=== PATIENT | female | born 1955 | race Caucasian/White ===

== ENCOUNTER 2016-06-01 17:50 | Emergency (ER) | payer OTHER ==
--- NOTE | 2016-06-01 19:59 | ED ORDER SUMMARY ---
..... Patient: ALVARO PARKER OrderSheet [facility] VisitID: [id number] [address] [place] [address] 61y, F Registration Date/Time: 06/01/2016 ORDER SHEET Weight: 56.6 kg (stated) Allergies: Codeine GENERAL ORDERS: Dress Wounds (19:06/01/2016 HBivens A.R.N.P.) (19:45 EInderbitzen R.N.) Suture Set-up: (19:06/01/2016 HBivens A.R.N.P.) (19:26 EInderbitzen R.N.) MEDICATION ORDERS: Tdap IM 0.5 mL (NOW, per protocol) (19:06/01/2016 HBivens A.R.N.P.) (19:33 EInderbitzen R.N.) IV FLUIDS: ORDER SHEET NOTES: [Electronically signed by Meghna Lakhani R.N. (20:16 06/01/2016)] [Electronically signed by Monica SmartR.N.P. (21:20 06/01/2016)] [Electronically locked/signed by Meghna Lakhani R.N. (20:16 06/01/2016)]
--- NOTE | 2016-06-01 19:59 | ED NURSING NOTES ---
Clinical Report - Nurses [facility] [place] [address] 06/01/2016 17:53 [id number] TRI[facility] Triage time 18:35 Jun 01 2016. Acuity: LEVEL 3. Chief Complaint: INJURY TO RIGHT HAND. Alert. RODOLFO COMA SCORE: Samson Coma Scale: 15- eyes open spontaneously (4); best verbal response- oriented x 4 (5); best motor response- obeys commands (6). Rodolfo Coma Scale: 15- eyes open spontaneously (4); best verbal response- oriented x 4 (5); best motor response- obeys commands (6). --18:47 Josse Rob R.N. 18:35 06/01/16. BP: 160/87. HR: 72. RR: 16. O2 saturation: 97% on room air. Temp: 98.8 F (oral). Pain level now: 11/16. --18:47 Josse Rob R.N. Weight: 56.6 kg stated. Height/Length: 69 inches Per Patient. BMI: 18.4. --18:40 Josse Rob R.N. Medications Atenolol Oral. Lisinopril Oral. --18:39 Josse Rob R.N. Allergies Codeine. Definite Moderate(nausea) --18:39 Josse Rob R.N. History Arrived by private vehicle. Historian: patient. Accompanied by friend. Primary physician (Jay Resendiz). ( Laceration to (R) Hand close to the index finger knuckle. Bleed control. Doing dishes and a broken piece of glass cut that hand.). This occurred (about 1 1/2 hours ago). She sustained a laceration. 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 PAST MEDICAL HX: Hypertension. Tetanus status: up-to-date. Immunizations: status is unknown. The patient is post-menopausal. SOCIAL HX: Heavy tobacco smoker (cigarette)- 1 pack per day. History of drug use: marijuana. No alcohol use. No infectious disease exposure. ABUSE ASSESSMENT: No report of abuse. FALL RISK ASSESSMENT: Fall risk assessment completed. No fall risk identified. NUTRITIONAL RISK ASSESSMENT: The nutritional risk assessment revealed no deficiencies. FUNCTIONAL ASSESSMENT: Functional assessment: no impairments noted. LEARNING NEEDS ASSESSMENT: The learning needs assessment revealed no barriers. SKIN INTEGRITY ASSESSMENT: Skin integrity risk assessment completed. No skin integrity risk identified. --18:47 Josse Rob R.N. Interventions ID and allergy band on patient. To treatment room. --18:47 Josse Rob R.N. PHYSICAL ASSESSMENT Ambulatory to room. GENERAL / NEURO / PSYCH: Oriented X 4. Alert. Appears in no acute distress. EXTREMITIES: Capillary refill is less than 2 seconds in the extremities. Extremity pulses are within normal limits. Extremities exhibit normal ROM. Neuro-vascular status intact to the extremity. SKIN: Skin is warm and dry. Laceration to right hand. --18:47 Josse Rob R.N. NURSING PROGRESS NOTES Reassurance given to the patient. Patient identifiers checked. Call light placed in reach. Side rails up x 1. Bed placed in lowest position. Brakes of bed on. Patient ready for evaluation- chart flagged and ED physician notified. --18:48 Josse Rob R.N. 19:12 06/01/16. Care transferred (assumed patient care, written notes reviewed). --19:12 Meghna Lakhani R.N. 19:30 06/01/2016 TDAP IM 0.5 mL given. (Lot#: [id number], expiration date: 01/14/2018, Molder Apprentice: sanofi pasteur). Given in the right deltoid. Allergies verified and confirmed 5 rights. Vaccine information statement provided to the patient. --19:33 Meghna Lakhani R.N. 19:46 06/01/16. Wound cleansed with sterile water. Applied clean bulky dressing, following the application of antibiotic ointment (bacitracin). Secured with tape and nehal (patient tolerated well). --19:46 Meghna Lakhani R.N. 18:35 06/01/16. BP: 160/87. HR: 72. RR: 16. O2 saturation: 97% on room air. Temp: 98.8 F (oral). Pain level now: 11/16. --19:46 Meghna Lakhani R.N. 18:35 06/01/16. BP: 160/87. HR: 72. RR: 16. O2 saturation: 97% on room air. Temp: 98.8 F (oral). Pain level now: 11/16. --20:14 Meghna Lakhani R.N. DISPOSITION / DISCHARGE 20:07 06/01/16. Departure time: 20:Jun 01 2016. Condition at departure: improved and stable. The goals identified in the patient's plan of care were met. No learning barriers present. Reviewed wound care instructions. Reviewed referral to a primary care physician for followup. Summary of care provided to patient via paper. The patient was discharged home and accompanied by semiconductor processing group leader. She left the Emergency Department ambulatory and via private vehicle. Membership Advisor driving. --20:15 Meghna Lakhani R.N. 18:35 06/01/16. BP: 160/87. HR: 72. RR: 16. O2 saturation: 97% on room air. Temp: 98.8 F (oral). Pain level now: 11/16. --20:15 Meghna Lakhani R.N. Locked/Released at 06/01/2016 20:16 by Meghna Lakhani R.N.
--- NOTE | 2016-06-01 19:59 | ED NURSING NOTES ---
Clinical Report - Nurses [facility] [place] [address] 06/01/2016 17:53 [id number] TRIAGE Triage time 18:35 Jun 01 2016. Acuity: LEVEL 3. Chief Complaint: INJURY TO RIGHT HAND. Alert. RODOLFO COMA SCORE: [place] Coma Scale: 15- eyes open spontaneously (4); best verbal response- oriented x 4 (5); best motor response- obeys commands (6). Rodolfo Coma Scale: 15- eyes open spontaneously (4); best verbal response- oriented x 4 (5); best motor response- obeys commands (6). --18:47 Josse Rob R.N. 18:35 06/01/16. BP: 160/87. HR: 72. RR: 16. O2 saturation: 97% on room air. Temp: 98.8 F (oral). Pain level now: 11/16. --18:47 Josse Rob R.N. Weight: 56.6 kg stated. Height/Length: 69 inches Per Patient. BMI: 18.4. --18:40 Josse Rob R.N. Medications Atenolol Oral. Lisinopril Oral. --18:39 Josse Rob R.N. Allergies Codeine. Definite Moderate(nausea) --18:39 Josse Rob R.N. History Arrived by private vehicle. Historian: patient. Accompanied by friend. Primary physician (Jay Resendiz). ( Laceration to (R) Hand close to the index finger knuckle. Bleed control. Doing dishes and a broken piece of glass cut that hand.). This occurred (about 1 1/2 hours ago). She sustained a laceration. 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 PAST MEDICAL HX: Hypertension. Tetanus status: up-to-date. Immunizations: status is unknown. The patient is post-menopausal. SOCIAL HX: Heavy tobacco smoker (cigarette)- 1 pack per day. History of drug use: marijuana. No alcohol use. No infectious disease exposure. ABUSE ASSESSMENT: No report of abuse. FALL RISK ASSESSMENT: Fall risk assessment completed. No fall risk identified. NUTRITIONAL RISK ASSESSMENT: The nutritional risk assessment revealed no deficiencies. FUNCTIONAL ASSESSMENT: Functional assessment: no impairments noted. LEARNING NEEDS ASSESSMENT: The learning needs assessment revealed no barriers. SKIN INTEGRITY ASSESSMENT: Skin integrity risk assessment completed. No skin integrity risk identified. --18:47 Josse Rob R.N. Interventions ID and allergy band on patient. To treatment room. --18:47 Josse Rob R.N. PHYSICAL ASSESSMENT Ambulatory to room. GENERAL / NEURO / PSYCH: Oriented X 4. Alert. Appears in no acute distress. EXTREMITIES: Capillary refill is less than 2 seconds in the extremities. Extremity pulses are within normal limits. Extremities exhibit normal ROM. Neuro-vascular status intact to the extremity. SKIN: Skin is warm and dry. Laceration to right hand. --18:47 Josse Rob R.N. NURSING PROGRESS NOTES Reassurance given to the patient. Patient identifiers checked. Call light placed in reach. Side rails up x 1. Bed placed in lowest position. Brakes of bed on. Patient ready for evaluation- chart flagged and ED physician notified. --18:48 Josse Rob R.N. 19:12 06/01/16. Care transferred (assumed patient care, written notes reviewed). --19:12 Meghna Lakhani R.N. 19:30 06/01/2016 TDAP IM 0.5 mL given. (Lot#: [id number], expiration date: 01/14/2018, Claims Adjuster Supervisor: sanofi pasteur). Given in the right deltoid. Allergies verified and confirmed 5 rights. Vaccine information statement provided to the patient. --19:33 Meghna Lakhani R.N. 19:46 06/01/16. Wound cleansed with sterile water. Applied clean bulky dressing, following the application of antibiotic ointment (bacitracin). Secured with tape and nehal (patient tolerated well). --19:46 Meghna Lakhani R.N. 18:35 06/01/16. BP: 160/87. HR: 72. RR: 16. O2 saturation: 97% on room air. Temp: 98.8 F (oral). Pain level now: 11/16. --19:46 Meghna Lakhani R.N. 18:35 06/01/16. BP: 160/87. HR: 72. RR: 16. O2 saturation: 97% on room air. Temp: 98.8 F (oral). Pain level now: 11/16. --20:14 Meghna Lakhani R.N. DISPOSITION / DISCHARGE 20:07 06/01/16. Departure time: 20:Jun 01 2016. Condition at departure: improved and stable. The goals identified in the patient's plan of care were met. No learning barriers present. Reviewed wound care instructions. Reviewed referral to a primary care physician for followup. Summary of care provided to patient via paper. The patient was discharged home and accompanied by seamless hosiery knitter. She left the Emergency Department ambulatory and via private vehicle. Evaluation Advisor driving. --20:15 Meghna Lakhani R.N. 18:35 06/01/16. BP: 160/87. HR: 72. RR: 16. O2 saturation: 97% on room air. Temp: 98.8 F (oral). Pain level now: 11/16. --20:15 Meghna Lakhani R.N. Locked/Released at 06/01/2016 20:16 by Meghna Lakhani R.N.
--- NOTE | 2016-06-01 19:59 | ED ORDER SUMMARY ---
..... Patient: ALVARO PARKER OrderSheet [facility] VisitID: [id number] [address] [place] [address] 61y, F Registration Date/Time: 06/01/2016 ORDER SHEET Weight: 56.6 kg (stated) Allergies: Codeine GENERAL ORDERS: Dress Wounds (19:06/01/2016 HBivens A.R.N.P.) (19:45 EInderbitzen R.N.) Suture Set-up: (19:06/01/2016 HBivens A.R.N.P.) (19:26 EInderbitzen R.N.) MEDICATION ORDERS: Tdap IM 0.5 mL (NOW, per protocol) (19:06/01/2016 HBivens A.R.N.P.) (19:33 EInderbitzen R.N.) IV FLUIDS: ORDER SHEET NOTES: [Electronically signed by Meghna Lakhani R.N. (20:16 06/01/2016)] [Electronically signed by Monica SmartR.N.P. (21:20 06/01/2016)] [Electronically locked/signed by Meghna Lakhani R.N. (20:16 06/01/2016)]
--- NOTE | 2016-06-01 19:59 | ED CLINICAL REPORT ---
Clinical Report - Physicians/Mid Levels [facility] [address] [place] [address] 06/01/2016 17:53 Patient: ALVARO PARKER Time Seen: 19:08; initial patient contact, initial documentation, patient care assumed. Arrived- By private vehicle. Historian- patient and friend. HISTORY OF PRESENT ILLNESS Chief Complaint: Injury to the right hand. The injury happened just prior to arrival. Occurred at home. The patient sustained a laceration from broken glass (doing dishes). Patient is experiencing moderate pain. Patient denies injury to the head or neck. No other injury. REVIEW OF SYSTEMS The patient sustained a laceration. No swelling, tingling, numbness or weakness. All systems otherwise negative, except as recorded above. PAST HISTORY See nurses notes. Problems: no known problems. Additional Surgeries: Left knee surgeries. Tubal Ligation. The patient's dominant hand is the right. Tetanus immunization status is unknown. SOCIAL HISTORY Heavy tobacco smoker. History of occasional drug use: marijuana. No alcohol use. No recent travel. Is a local resident. FAMILY HISTORY No significant family medical history. ADDITIONAL NOTES The nursing notes have been reviewed with agreement regarding the chief complaint, HPI, ROS, PMH and patient medications and allergies. PHYSICAL EXAM Vital Signs: 06/01/2016 18:35 BP: 160/87. HR: 72. RR: 16. O2 saturation: 97%. Temp: 98.8 F. Pain level now: 8/10. Have been reviewed as normal and appear to be correct. Appearance: Alert. Oriented X3. No acute distress. (pt appears under the influence). Head: Head atraumatic. Eyes: Pupils equal, round and reactive to light. Eyes normal inspection. Respiratory: No respiratory distress. Skin: Skin warm and dry. Skin intact. Extremities: Right hand: mild tenderness and subcutaneous 3.0 cm laceration localized to the dorsal aspect of the hand. Neurovascular intact distally. (v shaped flap lac to knuckle area of 5th digit with mild active bleeding and tenderness). No erythema, swelling, abrasion, ecchymosis or puncture wound. No foreign body or deformity. Left hand. No wrist injury. Hand and wrist exam otherwise negative. Extremities otherwise negative. Neuro, Vascular and Tendons: Vascular status intact. Sensation intact. Motor intact. Tendon function intact. Neuro: Oriented X 3. No motor deficit. No sensory deficit. Note: isolated injury to hand. PROGRESS AND PROCEDURES Laceration Repair: Location: left hand. Length: 3 cm. Complexity: simple (local anesthesia used and sutured). Wound depth/shape- subcutaneous, linear and flap-like and involving fascia. Wound is clean. No contamination, foreign body or contused tissue present. No tissue loss. Distal neuro/vascular/tendon status normal. Tendon not examined. No tendon deficit or laceration or tendon injury. Local anesthesia provided using 1% lidocaine (4 mL). Prepped with Betadine. Wound explored, cleansed, irrigated and examined to the base in bloodless field with normal saline. Wound not debrided. No foreign material removed. Closure of skin: interrupted 4-0 nylon (8 sutures). Post-procedure: she is stable and there are no complications. Bleeding is controlled and neuro-vascular status is intact distal to the wound. Tetanus immunization given. Estimated blood loss: 2 mL. Patient and friend counseled in person regarding the patient's stable condition and diagnosis. 19:59. Differential Diagnosis: Other possible considerations: lac, fb, tendon injury, skin avulsion. Above considerations are based on history and physical exam. Differential diagnosis was discussed with patient. Disposition: Discharged home in good and improved condition (19:59). Condition: good and stable. CLINICAL IMPRESSION Single deep laceration to the right hand.Treatment of laceration not delayed. No infection or foreign body present. INSTRUCTIONS Protect wound and keep wound area clean. Change dressing twice daily. Soak in warm soapy water twice daily. Apply bacitracin twice daily. Sutures should be removed in ten days. Warnings: TETANUS: You were given a tetanus shot during your visit. Make a note for future reference. GENERAL WARNINGS: Return or contact your physician immediately if your condition worsens or changes unexpectedly, if not improving as expected, or if other problems arise. Specifically return if problem worsens. Follow-up: Follow up with your doctor in about ten days for suture removal and wound check. Call for an appointment. Summary of care provided to patient. Understanding of the discharge instructions verbalized by patient. (Electronically signed by Monica Smart A.R.N.P. 06/01/2016 21:20)
--- NOTE | 2016-06-01 21:21 | ED MAR SUMMARY ---
..... Medication Administration Record [facility] [address] [place] [address] Patient: ALVARO PARKER Visit ID: [id number] 61y, F Weight: 56.6 kg Height/Length: 69 in BMI: 18.4 ALLERGIES: Codeine Given 19:30 06/01/2016 Meghna Lakhani R.N. Medication Administered: TDAP [IM], Dose: 0.5 mL IM. Medication Ordered: Tdap IM 0.5 mL (NOW, per protocol).
--- NOTE | 2016-06-01 21:21 | ED MAR SUMMARY ---
..... Medication Administration Record [facility] [address] [place] [address] Patient: ALVARO PARKER Visit ID: [id number] 61y, F Weight: 56.6 kg Height/Length: 69 in BMI: 18.4 ALLERGIES: Codeine Given 19:30 06/01/2016 Meghna Lakhani R.N. Medication Administered: TDAP [IM], Dose: 0.5 mL IM. Medication Ordered: Tdap IM 0.5 mL (NOW, per protocol).
--- NOTE | 2016-06-01 21:21 | ED DISCHARGE INSTRUCTIONS ---
Patient: ALVARO PARKER General Instructions [facility] VisitID: [id number] [place] [address] 61y, F Registration Date/Time: 06/01/2016 Single deep laceration to the right hand.Treatment of laceration not delayed. No infection or foreign body present. INSTRUCTIONS Protect wound and keep wound area clean. Change dressing twice daily. Soak in warm soapy water twice daily. Apply bacitracin twice daily. Sutures should be removed in ten days. Warnings: TETANUS: You were given a tetanus shot during your visit. Make a note for future reference. GENERAL WARNINGS: Return or contact your physician immediately if your condition worsens or changes unexpectedly, if not improving as expected, or if other problems arise. Specifically return if problem worsens. Follow-up: Follow up with your doctor in about ten days for suture removal and wound check. Call for an appointment. Summary of care provided to patient. Understanding of the discharge instructions verbalized by patient. ADDITIONAL INFORMATION Laceration, Extremity (Sutures, Katie, Or Tape) A laceration is a cut through the skin. This will usually require stitches (sutures) or katie if it is deep. Minor cuts may be treated with surgical tape closures. Home care The following guidelines will help you care for your laceration at home: Keep the wound clean and dry. If a bandage was applied and it becomes wet or dirty, replace it. Otherwise, leave it in place for the first 24 hours, then change it once a day or as directed. If stitches or katie were used, clean the wound daily: After removing the bandage, wash the area with soap and water. Use a wet cotton swab to loosen and remove any blood or crust that forms. After cleaning, keep the wound clean and dry. Talk with your doctor before applying any antibiotic ointment to the wound. Reapply the bandage. You may remove the bandage to shower as usual after the first 24 hours, but do not soak the area in water (no swimming) until the stitches or katie are removed. If surgical tape closures were used, keep the area clean and dry. If it becomes wet, blot it dry with a towel. The doctor may prescribe an antibiotic cream or ointment to prevent infection. Do not stop taking this medication until you have finished the prescribed course or the doctor tells you to stop. The doctor may also prescribe medications for pain. Follow the doctors instructions for taking these medications. If you have chronic liver or kidney disease or ever had a stomach ulcer or GI bleeding, talk with your doctor before using these medicines. Follow-up care Follow up with your health care provider. Most skin wounds heal within ten days. However, an infection may sometimes occur despite proper treatment. Therefore, check the wound daily for the signs of infection listed below. Stitches and katie should be removed within 714 days. If surgical tape closures were used, you may remove them after 10 days, if they have not fallen off by then. Notify your doctor if you notice persistent numbness or weakness in the injured extremity. (Note:A radiologist will review any X-rays that were taken. We will notify you of any new findings that may affect your care.) When to seek medical care Get prompt medical attention if any of these occur: Increasing pain in the wound Redness, swelling, or pus coming from the wound Fever of 100.4F (38C) or higher, or as directed by your health care provider If stitches or katie come apart or fall out before your next appointment If the surgical tape closures fall off within seven days, or the wound edges re-open Bleeding not controlled by direct pressure Diphtheria Toxoid Adsorbed, Pertussis Vaccine, Acellular (Adsorbed), Tetanus Toxoid, Adsorbed Suspension for injection What is this medicine? DIPHTHERIA and TETANUS TOXOIDS; PERTUSSIS VACCINE (dif THEER ee and TET n us TOK soids; per TUS iss vak SEEN) is used to prevent diphtheria, tetanus, and pertussis infections. How should I use this medicine? This vaccine is for injection into a muscle. It is given by a health memory care director. A copy of Vaccine Information Statements will be given before each vaccination. Read this sheet carefully each time. The sheet may change frequently. Talk to your windows technical specialist regarding the use of this vaccine in children. While the DTP vaccine may be given to children ages 6 weeks to 7 years and the Tdap vaccine may be given to children at least 10 years old, precautions do apply. What side effects may I notice from receiving this medicine? Side effects that you should report to your doctor or health memory care director as soon as possible: allergic reactions like skin rash, itching or hives, swelling of the face, lips, or tongue breathing problems fever of 103 degrees F or more flu-like symptoms inconsolable crying infection pain, tingling, numbness in the hands or feet seizures swelling of arm or leg that was injected unusually weak or tired Side effects that usually do not require immediate medical attention (report these side effects to your doctor or health memory care director if they continue or are bothersome): fussy, irritable loss of appetite fever of 102 degrees F or less pain, tenderness, redness, swelling, or a 'knot' at site where injected vomiting What may interact with this medicine? immune globulin medicines that suppress your immune function like adalimumab, anakinra, infliximab medicines to treat cancer medicines that treat or prevent blood clots like warfarin, enoxaparin, and dalteparin steroid medicines like prednisone or cortisone What if I miss a dose? It is important not to miss your dose. Call your doctor or health memory care director if you are unable to keep an appointment. Where should I keep my medicine? This drug is given in a hospital or clinic and will not be stored at home. What should I tell my health care provider before I take this medicine? They need to know if you have any of these conditions: blood disorders like hemophilia fever or infection immune system problems neurologic disease seizures an unusual or allergic reaction to vaccines, thimerosal, latex, other medicines, foods, dyes, or preservatives or trying to get breast-feeding What should I watch for while using this medicine? See your health care provider for all shots of this vaccine as directed. To have protection from infection, you must have 3 shots of this vaccine plus boosters as needed. Tell your doctor right away if you have any serious or unusual side effects after getting this vaccine. You have been given the following additional information: Laceration, Extrem (Suture, Staple, Or Tape) Diphtheria Toxoid Adsorbed, Pertussis Vaccine, Acellular (Adsorbed), Tetanus Toxoid, Adsorbed Suspension for injection (Electronically signed by Moncia Smart A.R.N.P. 06/01/2016 21:20)
--- NOTE | 2016-06-01 21:21 | ED DISCHARGE INSTRUCTIONS ---
Patient: ALVARO PARKER General Instructions [facility] VisitID: [id number] [place] [address] 61y, F Registration Date/Time: 06/01/2016 Single deep laceration to the right hand.Treatment of laceration not delayed. No infection or foreign body present. INSTRUCTIONS Protect wound and keep wound area clean. Change dressing twice daily. Soak in warm soapy water twice daily. Apply bacitracin twice daily. Sutures should be removed in ten days. Warnings: TETANUS: You were given a tetanus shot during your visit. Make a note for future reference. GENERAL WARNINGS: Return or contact your physician immediately if your condition worsens or changes unexpectedly, if not improving as expected, or if other problems arise. Specifically return if problem worsens. Follow-up: Follow up with your doctor in about ten days for suture removal and wound check. Call for an appointment. Summary of care provided to patient. Understanding of the discharge instructions verbalized by patient. ADDITIONAL INFORMATION Laceration, Extremity (Sutures, Katie, Or Tape) A laceration is a cut through the skin. This will usually require stitches (sutures) or katie if it is deep. Minor cuts may be treated with surgical tape closures. Home care The following guidelines will help you care for your laceration at home: Keep the wound clean and dry. If a bandage was applied and it becomes wet or dirty, replace it. Otherwise, leave it in place for the first 24 hours, then change it once a day or as directed. If stitches or katie were used, clean the wound daily: After removing the bandage, wash the area with soap and water. Use a wet cotton swab to loosen and remove any blood or crust that forms. After cleaning, keep the wound clean and dry. Talk with your doctor before applying any antibiotic ointment to the wound. Reapply the bandage. You may remove the bandage to shower as usual after the first 24 hours, but do not soak the area in water (no swimming) until the stitches or katie are removed. If surgical tape closures were used, keep the area clean and dry. If it becomes wet, blot it dry with a towel. The doctor may prescribe an antibiotic cream or ointment to prevent infection. Do not stop taking this medication until you have finished the prescribed course or the doctor tells you to stop. The doctor may also prescribe medications for pain. Follow the doctors instructions for taking these medications. If you have chronic liver or kidney disease or ever had a stomach ulcer or GI bleeding, talk with your doctor before using these medicines. Follow-up care Follow up with your health care provider. Most skin wounds heal within ten days. However, an infection may sometimes occur despite proper treatment. Therefore, check the wound daily for the signs of infection listed below. Stitches and katie should be removed within 714 days. If surgical tape closures were used, you may remove them after 10 days, if they have not fallen off by then. Notify your doctor if you notice persistent numbness or weakness in the injured extremity. (Note:A radiologist will review any X-rays that were taken. We will notify you of any new findings that may affect your care.) When to seek medical care Get prompt medical attention if any of these occur: Increasing pain in the wound Redness, swelling, or pus coming from the wound Fever of 100.4F (38C) or higher, or as directed by your health care provider If stitches or katie come apart or fall out before your next appointment If the surgical tape closures fall off within seven days, or the wound edges re-open Bleeding not controlled by direct pressure Diphtheria Toxoid Adsorbed, Pertussis Vaccine, Acellular (Adsorbed), Tetanus Toxoid, Adsorbed Suspension for injection What is this medicine? DIPHTHERIA and TETANUS TOXOIDS; PERTUSSIS VACCINE (dif THEER ee and TET n us TOK soids; per TUS iss vak SEEN) is used to prevent diphtheria, tetanus, and pertussis infections. How should I use this medicine? This vaccine is for injection into a muscle. It is given by a health healthcare network pricing consultant. A copy of Vaccine Information Statements will be given before each vaccination. Read this sheet carefully each time. The sheet may change frequently. Talk to your urban renewal manager regarding the use of this vaccine in children. While the DTP vaccine may be given to children ages 6 weeks to 7 years and the Tdap vaccine may be given to children at least 10 years old, precautions do apply. What side effects may I notice from receiving this medicine? Side effects that you should report to your doctor or health healthcare network pricing consultant as soon as possible: allergic reactions like skin rash, itching or hives, swelling of the face, lips, or tongue breathing problems fever of 103 degrees F or more flu-like symptoms inconsolable crying infection pain, tingling, numbness in the hands or feet seizures swelling of arm or leg that was injected unusually weak or tired Side effects that usually do not require immediate medical attention (report these side effects to your doctor or health healthcare network pricing consultant if they continue or are bothersome): fussy, irritable loss of appetite fever of 102 degrees F or less pain, tenderness, redness, swelling, or a 'knot' at site where injected vomiting What may interact with this medicine? immune globulin medicines that suppress your immune function like adalimumab, anakinra, infliximab medicines to treat cancer medicines that treat or prevent blood clots like warfarin, enoxaparin, and dalteparin steroid medicines like prednisone or cortisone What if I miss a dose? It is important not to miss your dose. Call your doctor or health healthcare network pricing consultant if you are unable to keep an appointment. Where should I keep my medicine? This drug is given in a hospital or clinic and will not be stored at home. What should I tell my health care provider before I take this medicine? They need to know if you have any of these conditions: blood disorders like hemophilia fever or infection immune system problems neurologic disease seizures an unusual or allergic reaction to vaccines, thimerosal, latex, other medicines, foods, dyes, or preservatives or trying to get breast-feeding What should I watch for while using this medicine? See your health care provider for all shots of this vaccine as directed. To have protection from infection, you must have 3 shots of this vaccine plus boosters as needed. Tell your doctor right away if you have any serious or unusual side effects after getting this vaccine. You have been given the following additional information: Laceration, Extrem (Suture, Staple, Or Tape) Diphtheria Toxoid Adsorbed, Pertussis Vaccine, Acellular (Adsorbed), Tetanus Toxoid, Adsorbed Suspension for injection (Electronically signed by Monica Smart A.R.N.P. 06/01/2016 21:20)
--- NOTE | 2016-06-01 21:21 | ED MED RECONCILIATION SUMMARY ---
Patient: ALVARO PARKER Medication Reconciliation Report [facility] VisitID: [id number] [address] [place] [place] [address] 61y, F Registration Date/Time: 06/01/2016 Weight: 56.6 kg Height/Length: 69 in. BMI: 18.4 ALLERGIES: Codeine The patient's Home Medications are listed below: THE FOLLOWING MEDICATIONS NEED TO BE RECONCILED: Atenolol Oral Lisinopril Oral The source(s) of the original Home Medication information: Not obtained. The following Medications were given to the patient in the Emergency Department: TDAP [IM] IM 0.5 mL, administered: 06/01/2016 7:30:00 PM The following Medications were prescribed to the patient: None.
--- NOTE | 2016-06-01 21:21 | ED MED RECONCILIATION SUMMARY ---
Patient: ALVARO PARKER Medication Reconciliation Report [facility] VisitID: [id number] [address] [place] [address] 61y, F Registration Date/Time: 06/01/2016 Weight: 56.6 kg Height/Length: 69 in. BMI: 18.4 ALLERGIES: Codeine The patient's Home Medications are listed below: THE FOLLOWING MEDICATIONS NEED TO BE RECONCILED: Atenolol Oral Lisinopril Oral The source(s) of the original Home Medication information: Not obtained. The following Medications were given to the patient in the Emergency Department: TDAP [IM] IM 0.5 mL, administered: 06/01/2016 7:30:00 PM The following Medications were prescribed to the patient: None.
== END 2016-06-01 20:07 | disposition home or self-care (01) ==
LOC: ED SRH 17:50
DX: S61.411A Laceration without foreign body of right hand, initial encounter (principal); W25.XXXA Contact with sharp glass, initial encounter; Y93.G1 Activity, food preparation and clean up; Y92.009 Unspecified place in unspecified non-institutional (private) residence as the place of occurrence of the external cause; Y99.9 Unspecified external cause status; I10 Essential (primary) hypertension; F17.210 Nicotine dependence, cigarettes, uncomplicated; Z88.5 Allergy status to narcotic agent; Z23 Encounter for immunization